=== PATIENT | male | born 1985 | race Hispanic/Latino ===

== ENCOUNTER 2021-08-14 21:36 | Emergency (ER) | payer SELFPAY ==
[~2021-08-14] VITALS: Ht 180.3 cm; Wt 122.5 kg
== END 2021-08-14 22:36 | disposition home or self-care (01) ==
LOC: ER 21:41
DX: M79.661 Pain in right lower leg (principal); S86.811A Strain of other muscle(s) and tendon(s) at lower leg level, right leg, initial encounter; Y93.64 Activity, baseball; I10 Essential (primary) hypertension
CPT/HCPCS: 99283